=== PATIENT | female | born 1960 | race Caucasian/White ===

== ENCOUNTER 2016-10-18 14:08 | Emergency (ER) | payer MEDICARE, OTHER ==
[~2016-10-18] VITALS: Ht 160 cm; Wt 85.0 kg
[~2016-10-18 14:08] MED LIST: CLON1TAB PO; RISP1 PO
[2016-10-18 14:14] VITALS: BP 108/67; PULSE 76; RESP 16; TEMP 98.8; O2SAT 96
--- NOTE | 2016-10-18 15:34 | PD ---
HPI Chief Complaint: Musculoskeletal Complaint Time Seen by Provider: 15:32 Travel History International Travel<30 days: No Contact w/Intl Traveler<30days: No Traveled to known affect area: No History of Present Illness HPI Patient comes in complaining of a productive cough ongoing for approximately 2 weeks. Patient states she's been coughing up yellowish and clear phlegm. Patient states her had similar symptoms with the [facility] was evaluated prescribed amoxicillin however he wasn't taken and she had been taking it with some improvement of her symptoms however ran out 2 days and feels her symptoms are getting worse again. Patient also reports that she developed right upper anterior chest wall pain that is worse with coughing and certain movement. Patient has any trauma. Patient states she was carrying some heavy bags is not sure if this may have caused the pain or if it is from coughing. Patient denies any known fevers, nausea, vomiting, diarrhea, abdominal pain, neck pain, or back pain.. PFSH Past Medical History Blood Disorders: No Anxiety: Yes Depression: Yes Cancer: No Cardiovascular Problems: Yes (CHOLESTEROL) Diminished Hearing: No Endocrine: No Genitourinary: No Immune Disorder: No Musculoskeletal: No Neurologic: No Psychiatric: Yes Reproductive: No Respiratory: No Immunizations Current: Yes Influenza Vaccination: No ?: Not Menopausal: Yes Past Surgical History AICD: No Arteriovenous Shunt: No Insulin Pump: No Joint Replacement: No Pacemaker: No Other Surgery: No Social History Alcohol Use: No Tobacco Use: Yes (/ PPD) Substance Use: No Allergies-Medications (Allergen,Severity, Reaction): Coded Allergies: Haldol (Verified Allergy, Severe, Swelling, 10/18/16) [place] (Verified Allergy, Severe, Swelling, 10/18/16) Reported Meds & Prescriptions Reported Meds & Active Scripts Active Ventolin Hfa 18 GM Inh (Albuterol Sulfate) 90 Mcg/Act Aer 2 Puff INH Q4H PRN Zithromax Z-Dante (Azithromycin) 250 Mg Dspk 250 Mg PO DIRECTED 500 MG (2 tabs) day 1, then 1 tab days 2-5. Reported Clonazepam 1 Mg Tab 1 Mg PO BID Risperdal (Risperidone) 1 Mg Tab 1 Mg PO BID Review of Systems Except as stated in HPI: all other systems reviewed are Neg Physical Exam Narrative GENERAL: Well-developed, overly nourished, in no acute distress, and non-ill appearing. SKIN: Warm and dry. HEAD: Atraumatic. Normocephalic. EYES: Pupils equal and round. EOMI. No scleral icterus. No injection or drainage. ENT: No nasal bleeding or discharge. Mucous membranes pink and moist. Tympanic membranes are pearly crane bilaterally. Posterior pharynx nonerythematous without exudate. Uvula is midline. No tenderness to facial sinuses palpation. NECK: Trachea midline. No cervical lymphadenopathy. Supple. No nuclear rigidity. CARDIOVASCULAR: Regular rate and rhythm. No murmur appreciated. RESPIRATORY: No accessory muscle use. No respiratory distress. Clear to auscultation. Breath sounds equal bilaterally. MUSCULOSKELETAL: No obvious deformities. No clubbing. No cyanosis. No edema. Full range of motion. NEUROLOGICAL: Awake and alert. No obvious cranial nerve deficits. Motor grossly within normal limits. Normal speech. PSYCHIATRIC: Appropriate mood and affect; insight and judgment normal. Data Data Last Documented VS Vital Signs Date Time Temp Pulse Resp B/P Pulse Ox O2 Delivery O2 Flow Rate FiO2 10/18/16 14:14 98.8 76 16 108/67 96 Orders Chest, Single Ap (10/18/16 ) [facility] Medical Decision Making Medical Screen Exam Complete: Yes Emergency Medical Condition: Yes Differential Diagnosis Pneumonia, bronchitis, upper respiratory infection, other Narrative Course Patients symptom complex is consistent with bronchitis. The patient is non-ill appearing and is in no respiratory distress and comfortable. The patient moves air well and oxygen saturations are normal. Chest x-ray revealed no evidence of obvious consolidation of infiltrate. There is no clinical evidence to suggest pneumonia at this time. Plan of care and management were discussed with the patient who agreed with plan. The patient was instructed to follow up with their physician and instructed to return if worsens , progressively worsening shortness of breath or difficulty breathing, persistent fever, chest pains or discomfort, inability to keep medication or fluids down with or without vomiting, or as needed. Patient in no obvious distress upon re-evaluation. All pertinent Radiology result(s) discussed with patient. Patient was asked if they wanted to speak to my attending, which the patient did not wish to do at this time. Any questions/ concerns in reference to patient diagnosis/condition discussed and clarified prior to patient's discharge. Reinforced sheer importance of close follow up with patient's primary physician or primary care clinic. Instructed patient to return to ED immediately, if symptoms return/worsen. Pt showed understanding of above instructions. Further instructions and recommendations were detailed in discharge paperwork. Pt ambulated without difficulty out of ED at discharge. Diagnosis Primary Impression: Bronchitis Patient Instructions: Acute Bronchitis (ED), General Instructions Additional Instructions: Follow-up with your primary care physician next week for evaluation. Take all medication as prescribed. Return to the emergency department if symptoms get worse. Med/Other Pt SpecificInfo: Prescription(s) given Scripts Albuterol 18 GM Inh (Ventolin Hfa 18 GM Inh)90 Mcg/Act Aer2 Puff INH Q4H PRN ( SHORTNESS OF BREATH) #1 INHALER Ref 0 Prov:Evens Parada MD 10/18/16 Azithromycin (Zithromax Z-Dante)250 Mg [id number] Mg PO DIRECTED #1 DSPK Ref 0 500 MG (2 tabs) day 1, then 1 tab days 2-5. Prov:Evens Parada MD 10/18/16 Disposition: 01 DISCHARGE HOME Condition: Stable Bryan Goddard Oct 18, 2016 15:34
--- NOTE | 2016-10-18 15:54 | RADHPO ---
EXAM DATE/TIME: 10/18/2016 15:34 [facility] COMPARISON: CHEST SINGLE AP, June 11, 2015, 14:54. INDICATIONS : Right chest pain. MEDICAL HISTORY : None. SURGICAL HISTORY : None. ENCOUNTER: Initial ACUITY: 2 weeks PAIN SCORE: 8/10 LOCATION: Right chest FINDINGS: A single view of the chest demonstrates the lungs to be symmetrically aerated without evidence of mas s, infiltrate or effusion. The cardiomediastinal contours are unremarkable. Osseous structures are intact. CONCLUSION: 1. No acute cardiopulmonary findings identified. Sawyer Cerda MD on October 18, 2016 at 15:52 Board Certified Radiologist. This report was verified electronically.
[2016-10-18] MEDS ORDERED: ZITHTAB PO (16:05)
[2016-10-18] MEDS ORDERED: VENTAER INH (16:05)
== END 2016-10-18 16:26 | disposition home or self-care (01) ==
LOC: PHEFT 14:08
DX: J40 Bronchitis, not specified as acute or chronic (principal); F17.200 Nicotine dependence, unspecified, uncomplicated
CPT/HCPCS: 71010; 99283

== ENCOUNTER 2017-05-17 10:50 | Emergency (ER) | payer MEDICARE, OTHER ==
[~2017-05-17] VITALS: Ht 160 cm; Wt 86.0 kg
[~2017-05-17 10:50] MED LIST changes: +VENTAER INH; +ZITHTAB PO
[2017-05-17 10:52] VITALS: BP 137/61; PULSE 76; RESP 16; TEMP 98.1; O2SAT 95
--- NOTE | 2017-05-17 11:22 | PD ---
HPI Chief Complaint: Cold / Flu Symptoms Time Seen by Provider: 11:08 Travel History International Travel<30 days: No Contact w/Intl Traveler<30days: No Traveled to known affect area: No History of Present Illness HPI 56-year-old female presents to the emergency department approximately 1 week history of upper respiratory symptoms including headache, sore throat, postnasal drip, and congestion with wheezing and productive cough of yellow sputum. Patient has a long-term smoker and currently smokes half pack cigarettes per day. She states her has been sick as well which started her symptoms. Denies nausea, vomiting, or abdominal discomfort. She denies chest pain. She states no specific complaints of fever. She is wheezy with exertion. Patient has used inhalers in the past with improvement. Patient states she is "trying to quit smoking". She is allergic to haloperidol and lithium. PFSH Past Medical History Blood Disorders: No Anxiety: Yes Depression: Yes Cancer: No Cardiovascular Problems: Yes (CHOLESTEROL) Diminished Hearing: No Endocrine: No Genitourinary: No Immune Disorder: No Musculoskeletal: No Neurologic: No Psychiatric: Yes Reproductive: No Respiratory: No Immunizations Current: Yes Influenza Vaccination: No Menopausal: Yes Past Surgical History AICD: No Arteriovenous Shunt: No Insulin Pump: No Joint Replacement: No Pacemaker: No Other Surgery: No Social History Alcohol Use: No Tobacco Use: Yes (1/2 PPD) Substance Use: No Allergies-Medications (Allergen,Severity, Reaction): Coded Allergies: haloperidol (Unverified Allergy, Severe, Swelling, 05/17/17) lithium (Unverified Allergy, Severe, Swelling, 05/17/17) Reported Meds & Prescriptions Reported Meds & Active Scripts Active Amoxicillin 875 Mg Tab 875 Mg PO BID 10 Days Ventolin Hfa 18 GM Inh (Albuterol Sulfate) 90 Mcg/Act Aer 2 Puff INH Q4-6H PRN Reported Clonazepam 1 Mg Tab 1 Mg PO BID Risperdal (Risperidone) 1 Mg Tab 1 Mg PO BID Review of Systems Except as stated in HPI: all other systems reviewed are Neg General / Constitutional: No: Fever, Chills Eyes: No: Visual changes HENT: Positive: Headaches, Sore Throat, Rhinitis, Rhinorrhea, Congestion, Neck Stiffness, Earache, No: Vertigo, Lightheadedness, Nosebleed, Neck Pain, Masses, Gingival Bleeding, Dental Difficulties, Ear Discharge Cardiovascular: No: Chest Pain or Discomfort Respiratory: Positive: Cough, Shortness of Breath, Wheezing, No: Sneezing, Orthopnea, Hemoptysis, Night Sweats, Pleuritic Pain Gastrointestinal: No: Abdominal Pain Genitourinary: No: Dysuria Musculoskeletal: No: Pain Skin: No Rash Neurologic: No: Weakness Psychiatric: No: Depression Endocrine: No: Polydipsia Hematologic/Lymphatic: No: Easy Bruising Physical Exam Narrative GENERAL: Patient appears in no acute distress. SKIN: Warm and dry. Normal color. Normal turgor. HEAD: Atraumatic. Normocephalic. No specific sinus tenderness with palpation. EYES: Pupils equal and round. No scleral icterus. No injection or drainage. ENT: No nasal bleeding or discharge. Mucous membranes pink and moist. Posterior pharynx is somewhat raw appearing with mild erythema, but no significant lymphadenopathy or tonsillitis. Airway is patent. TMs are dull bilaterally with mild injection. NECK: Trachea midline. No JVD. Supple and nontender without significant lymphadenopathy. CARDIOVASCULAR: Regular rate and rhythm. RESPIRATORY: No accessory muscle use. Coarse with mild wheezing to auscultation throughout. Breath sounds equal bilaterally. GASTROINTESTINAL: Abdomen soft, non-tender, nondistended. Hepatic and splenic margins not palpable. MUSCULOSKELETAL: Extremities without clubbing, cyanosis, or edema. No obvious deformities. NEUROLOGICAL: Awake and alert. No obvious cranial nerve deficits. Motor grossly within normal limits. Five out of 5 muscle strength in the arms and legs. Normal speech. PSYCHIATRIC: Appropriate mood and affect; insight and judgment normal. Data Data Last Documented VS Vital Signs Date Time Temp Pulse Resp B/P (MAP) Pulse Ox O2 Delivery O2 Flow Rate FiO2 05/17/17 10:52 98.1 76 16 137/61 (86) 95 MDM Medical Decision Making Medical Screen Exam Complete: Yes Emergency Medical Condition: Yes Differential Diagnosis Sinusitis. Bronchitis. Wheezing. Dyshidrotic eczema Narrative Course Patient is medically stable at time of exam. Patient will be treated with amoxicillin 875 twice a day 10 days. Patient also given Ventolin metered dose inhaler 2 puffs every 4-6 hours when necessary. Patient is given triamcinolone ointment to use for her dyshidrotic eczema on her hands. Patient is encouraged to quit smoking as soon as possible. Patient to follow with her primary care physician or return to the emergency department as needed. Diagnosis Primary Impression: Acute wheezy bronchitis Additional Impression: Dyshidrotic eczema Referrals: Primary Care Physician Patient Instructions: Acute Bronchitis (ED), Dyshidrotic Eczema (ED), Electronic Cigarettes and Your Health (GEN), General Instructions Additional Instructions: Patient will be treated with amoxicillin 875 twice a day 10 days. Patient also given Ventolin metered dose inhaler 2 puffs every 4-6 hours when necessary. Patient is given triamcinolone ointment to use for her dyshidrotic eczema on her hands. Patient is encouraged to quit smoking as soon as possible. Patient to follow with her primary care physician or return to the emergency department as needed. Scripts Amoxicillin (Amoxicillin) 875 Mg Tab 875 MG PO BID for Infection for 10 Days, #20 TAB 0 Refills Prov: Sawyer Menchaca MD 05/17/17 Albuterol 18 GM Inh (Ventolin Hfa 18 GM Inh) 90 Mcg/Act Aer 2 PUFF INH Q4-6H Y for SHORTNESS OF BREATH, #1 INHALER 0 Refills Prov: Sawyer Menchaca MD 05/17/17 Disposition: 01 DISCHARGE HOME Condition: Stable Steven Naranjo May 17, 2017 11:22
[2017-05-17] MEDS ORDERED: VENTAER INH (11:23)
[2017-05-17] MEDS ORDERED: AMOX875T PO (11:23)
[2017-05-17] MEDS ORDERED: TRIAM.1%T TOPICAL (11:28)
== END 2017-05-17 11:32 | disposition home or self-care (01) ==
LOC: PHEFT 10:50
DX: J20.9 Acute bronchitis, unspecified (principal); L30.1 Dyshidrosis [pompholyx]
CPT/HCPCS: 99284

== ENCOUNTER 2017-10-17 16:46 | Emergency (ER) | payer MEDICARE, OTHER ==
[~2017-10-17] VITALS: Ht 160 cm; Wt 85.0 kg
[~2017-10-17 16:46] MED LIST changes: +AMOX875T PO; +TRIAM.1%T TOPICAL; -ZITHTAB PO
[2017-10-17 16:49] VITALS: BP 127/59; PULSE 95; RESP 16; TEMP 97.6; O2SAT 97
[2017-10-17 18:19] VITALS: BP 127/70; PULSE 79; RESP 18; TEMP 98.7; O2SAT 95
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
[2017-10-17 18:55] LABS: AUTOMATED NEUTROPHIL # 5.7 TH/MM3 (1.8-7.7); BASOPHIL # 0.1 TH/MM3 (0-0.2); BASOPHIL % 0.9 % (0.0-2.0); EOSINOPHIL # 0.2 TH/MM3 (0-0.4); EOSINOPHIL % 2.6 % (0.0-4.0); HEMATOCRIT 43.8 % (35.0-46.0); LYMPH % 31.5 % (9.0-44.0); MEAN CORPUSCULAR HEMOGLOBIN 31.8 PG (27.0-34.0); MEAN CORPUSCULAR HGB CONC 34.2 % (32.0-36.0); MEAN PLATELET VOLUME 8.5 FL (7.0-11.0); MONO % 5.8 % (0.0-8.0); MONOCYTE # 0.5 TH/MM3 (0-0.9); NEUT % 59.2 % (16.0-70.0); PLATELET COUNT 285 TH/MM3 (150-450); RED BLOOD COUNT 4.71 MIL/MM3 (4.00-5.30); RED CELL DISTRIBUTION WIDTH 13.8 % (11.6-17.2); WHITE BLOOD COUNT 9.5 TH/MM3 (4.0-11.0)
[2017-10-17 19:19] LABS: ALBUMIN 3.5 GM/DL (3.4-5.0); AST (GOT) 20 U/L (15-37); BICARBONATE 27.1 MEQ/L (21.0-32.0); BLOOD UREA NITROGEN 12 MG/DL (7-18); CALCIUM 9.3 MG/DL (8.5-10.1); CHLORIDE 105 MEQ/L (98-107); CREATININE 1.13 MG/DL (0.50-1.00); GLOMERULAR FILTRATION RATE 49 ML/MIN (>89); GLUCOSE,RANDOM 138 MG/DL (74-106); SODIUM (NA) 139 MEQ/L (136-145)
[2017-10-17 19:20] LABS: ALT (GPT) 27 U/L (10-53)
[2017-10-17 19:30] LABS: ALKALINE PHOSPHATASE 89 U/L (45-117); TOTAL BILIRUBIN ADULT 0.3 MG/DL (0.2-1.0); TOTAL PROTEIN 7.1 GM/DL (6.4-8.2)
[2017-10-17 19:48] VITALS: BP 113/58; PULSE 82; RESP 18; TEMP 98.9; O2SAT 98
[2017-10-17] MEDS ORDERED: risperiDONE 1 MG TAB PO ONE (22:00)
[2017-10-17] MEDS ORDERED: clonazePAM 1 MG TAB PO ONE (22:00)
[2017-10-18 02:29] VITALS: BP 120/67; PULSE 80; RESP 16; TEMP 98.6; O2SAT 95
[2017-10-18 10:42] VITALS: BP 106/56; PULSE 86; RESP 16; O2SAT 95
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
--- NOTE | 2017-10-18 14:50 | PD ---
Physical Exam Date Seen by Provider: Oct 18, 2017 Time Seen by Provider: 14:49 Narrative 56-year-old female patient previously medically cleared for psychiatric evaluation has been seen by psychiatric staff and deemed psychiatrically stable for discharge. Follow-up plan is as per discharge note for psychiatry staff. Data Data Last Documented VS Vital Signs Date Time Temp Pulse Resp B/P (MAP) Pulse Ox O2 Delivery O2 Flow Rate FiO2 10/18/17 10:42 86 16 106/56 (73) 95 Room Air 10/18/17 02:29 98.6 Orders Orders Complete Blood Count With Diff (10/17/17 17:33) Comprehensive Metabolic Panel (10/17/17 17:33) Thyroid Stimulating Hormone (10/17/17 17:33) Psych Screen (10/17/17 17:33) Drug Screen, Random Urine (10/17/17 17:33) Risperidone (Risperdal) (10/17/17 22:00) Clonazepam (Klonopin) (10/17/17 22:00) Diet Regular Basic (10/18/17 Breakfast) Diet Regular Basic (10/18/17 Lunch) Labs Laboratory Tests Test 10/17/17 18:20 10/17/17 18:27 White Blood Count 9.5 TH/MM3 Red Blood Count 4.71 MIL/MM3 Hemoglobin 15.0 GM/DL Hematocrit 43.8 % Mean Corpuscular Volume 93.0 FL Mean Corpuscular Hemoglobin 31.8 PG Mean Corpuscular Hemoglobin Concent 34.2 % Red Cell Distribution Width 13.8 % Platelet Count 285 TH/MM3 Mean Platelet Volume 8.5 FL Neutrophils (%) (Auto) 59.2 % Lymphocytes (%) (Auto) 31.5 % Monocytes (%) (Auto) 5.8 % Eosinophils (%) (Auto) 2.6 % Basophils (%) (Auto) 0.9 % Neutrophils # (Auto) 5.7 TH/MM3 Lymphocytes # (Auto) 3.0 TH/MM3 Monocytes # (Auto) 0.5 TH/MM3 Eosinophils # (Auto) 0.2 TH/MM3 Basophils # (Auto) 0.1 TH/MM3 CBC Comment DIFF FINAL Differential Comment Blood Urea Nitrogen 12 MG/DL Creatinine 1.13 MG/DL Random Glucose 138 MG/DL Total Protein 7.1 GM/DL Albumin 3.5 GM/DL Calcium Level 9.3 MG/DL Alkaline Phosphatase 89 U/L Aspartate Amino Transf (AST/SGOT) 20 U/L Alanine Aminotransferase (ALT/SGPT) 27 U/L Total Bilirubin 0.3 MG/DL Sodium Level 139 MEQ/L Potassium Level 3.9 MEQ/L Chloride Level 105 MEQ/L Carbon Dioxide Level 27.1 MEQ/L Anion Gap 7 MEQ/L Estimat Glomerular Filtration Rate 49 ML/MIN Thyroid Stimulating Hormone 3rd Gen 1.330 uIU/ML Urine Opiates Screen NEG Urine Barbiturates Screen NEG Urine Amphetamines Screen NEG Urine Benzodiazepines Screen NEG Urine Cocaine Screen NEG Urine Cannabinoids Screen NEG MDM Medical Record Reviewed: Yes Supervised Visit with YOBANY: Yes Narrative Course 56-year-old female patient previously medically cleared for psychiatric evaluation has been seen by psychiatric staff and deemed psychiatrically stable for discharge. Follow-up plan is as per discharge note for psychiatry staff. Diagnosis Primary Impression: Medical clearance for psychiatric admission Additional Impression: Bipolar 1 disorder Disposition: DISCHARGE HOME Condition: Stable Steven Naranjo Oct 18, 2017 14:50
== END 2017-10-18 15:20 | disposition home or self-care (01) ==
LOC: NEPJ 16:46
DX: F31.89 Other bipolar disorder (principal); F17.210 Nicotine dependence, cigarettes, uncomplicated; J45.909 Unspecified asthma, uncomplicated; E78.00 Pure hypercholesterolemia, unspecified; Z79.899 Other long term (current) drug therapy
CPT/HCPCS: 80053; 80307; 84443; 85025; 99283

== ENCOUNTER 2017-12-14 16:54 | Emergency (ER) | payer MEDICARE, OTHER ==
[~2017-12-14] VITALS: Ht 160 cm; Wt 85.4 kg
[~2017-12-14 16:54] MED LIST changes: -AMOX875T PO; -TRIAM.1%T TOPICAL; -VENTAER INH
[2017-12-14 17:13] VITALS: BP 151/63; PULSE 69; RESP 18; TEMP 98.2; O2SAT 95
[2017-12-14 18:20] VITALS: BP 151/63; PULSE 74; RESP 16; TEMP 98.2; O2SAT 96
== END 2017-12-14 20:10 | disposition left against medical advice (07) ==
LOC: PHED 16:54 → PHEFT 20:10
DX: R22.0 Localized swelling, mass and lump, head (principal); Z53.21 Procedure and treatment not carried out due to patient leaving prior to being seen by health care provider
CPT/HCPCS: 99281

== ENCOUNTER 2017-12-15 01:20 | Emergency (ER) | payer MEDICARE, OTHER ==
[~2017-12-15] VITALS: Ht 160 cm; Wt 86.4 kg
[2017-12-15 01:29] VITALS: BP_SYST 11; BP_SYST 111; BP_DIAS 57; PULSE 68; RESP 18; TEMP 98.1; O2SAT 97
[2017-12-15 02:00] VITALS: O2SAT 95
[2017-12-15] MEDS ORDERED: SODIUM CHLOR 0.9% 1000 ML INJ 1,000 ML IV ONE (02:12)
[2017-12-15] MEDS ORDERED: ONDANSETRON HCL 4 MG/2 ML VIAL IVP ONE (02:15)
[2017-12-15] MEDS ORDERED: SODIUM CHLORIDE 0.9% FLUSH 10 ML FLUSH IVF PRN (02:15)
[2017-12-15] MEDS ORDERED: MECLIZINE HCL 25 MG TAB PO ONE (02:15)
--- NOTE | 2017-12-15 02:59 | RADRPT ---
EXAM DATE/TIME: 12/15/2017 02:41 [facility] COMPARISON: No previous studies available for comparison. INDICATIONS : Patient fell today , now having upper back pain. MEDICAL HISTORY : None. SURGICAL HISTORY : None. ENCOUNTER: Initial ACUITY: 1 day PAIN SCORE: 7/10 LOCATION: Bilateral upper back FINDINGS: There is normal alignment of the thoracic vertebral bodies. Vertebral body height is maintained. No evidence of fracture or subluxation. Pedicles are intact at all levels. The paravertebral reflecti ons are not thickened. CONCLUSION: Intact thoracic spine. Florencio Quick MD on December 15, 2017 at 2:57 Board Certified Radiologist. This report was verified electronically.
--- NOTE | 2017-12-15 03:02 | RADRPT ---
EXAM DATE/TIME: 12/15/2017 02:31 [facility] COMPARISON: No previous studies available for comparison. INDICATIONS : Dizziness. Fall. RADIATION DOSE: 57.81 CTDIvol (mGy) MEDICAL HISTORY : None SURGICAL HISTORY : Thalmus tumor removed. ENCOUNTER: Initial ACUITY: 1 day PAIN SCALE: 6/10 LOCATION: cranial TECHNIQUE: Multiple contiguous axial images were obtained of the head. Using automated exposure control and adj ustment of the mA and/or kV according to patient size, radiation dose was kept as low as reasonably a chievable to obtain optimal diagnostic quality images. DICOM format image data is available electro nically for review and comparison. FINDINGS: There is a left frontal lobe mass and measures estimated 2.1 cm and has partial calcification. I'm no t sure whether its intra-axial or extra-axial. There is definitely some associated vasogenic edema in the left frontal lobe. There is 4.5 mm of rightward midline shift. No other mass lesions are demonstrated. No bleed. No evidence of an acute ischemic event. 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 Further characteri zation with MRI of the brain with and without contrast recommended. Florencio Quick MD on December 15, 2017 at 2:58 Board Certified Radiologist. This report was verified electronically.
--- NOTE | 2017-12-15 03:04 | RADRPT ---
EXAM DATE/TIME: 12/15/2017 02:31 [facility] COMPARISON: No previous studies available for comparison. INDICATIONS : Trauma. Neck pain post fall. RADIATION DOSE: 26.53 CTDIvol (mGy) MEDICAL HISTORY : None SURGICAL HISTORY : Thalmus tumor removed. ENCOUNTER: Initial ACUITY: 1 day PAIN SCALE: 6/10 LOCATION: neck TECHNIQUE: Volumetric scanning of the cervical spine was performed. Multiplanar reconstructions in the sagittal, coronal and oblique axial planes were performed. Using automated exposure control and adjustment o f the mA and/or kV according to patient size, radiation dose was kept as low as reasonably achievable to obtain optimal diagnostic quality images. DICOM format image data is available electronically f or review and comparison. FINDINGS: There is no fracture or subluxation of the cervical spine. Vertebral bodies have normal height. Moderate to severe disc space narrowing with circumferential small disc osteophyte complexes and mild bilateral uncovertebral and facet osteoarthritis seen at C5/C6 and C6/C7. Associated minimal bilater al foraminal stenosis. No significant spinal stenosis demonstrated. The paravertebral soft tissues are normal. CONCLUSION: Intact cervical spine. Degenerative changes at C5/C6 and C6/C7. Florencio Quick MD on December 15, 2017 at 3:01 Board Certified Radiologist. This report was verified electronically.
[2017-12-15 03:10] LABS: AUTOMATED NEUTROPHIL # 5.4 TH/MM3 (1.8-7.7); BASOPHIL # 0.1 TH/MM3 (0-0.2); EOSINOPHIL # 0.5 TH/MM3 (0-0.4); EOSINOPHIL % 4.2 % (0.0-4.0); HEMATOCRIT 45.4 % (35.0-46.0); HEMOGLOBIN 15.3 GM/DL (11.6-15.3); LYMPH % 37.5 % (9.0-44.0); LYMPHOCYTE # 4.1 TH/MM3 (1.0-4.8); MEAN CELL VOLUME 93.2 FL (80.0-100.0); MEAN CORPUSCULAR HEMOGLOBIN 31.4 PG (27.0-34.0); MEAN CORPUSCULAR HGB CONC 33.7 % (32.0-36.0); MEAN PLATELET VOLUME 8.5 FL (7.0-11.0); MONO % 7.7 % (0.0-8.0); MONOCYTE # 0.8 TH/MM3 (0-0.9); NEUT % 49.6 % (16.0-70.0); PLATELET COUNT 311 TH/MM3 (150-450); RED BLOOD COUNT 4.87 MIL/MM3 (4.00-5.30); RED CELL DISTRIBUTION WIDTH 13.3 % (11.6-17.2); WHITE BLOOD COUNT 10.9 TH/MM3 (4.0-11.0)
--- NOTE | 2017-12-15 03:21 | PD ---
HPI Chief Complaint: Back/ Neck Pain or Injury Time Seen by Provider: 01:47 Travel History International Travel<30 days: No Contact w/Intl Traveler<30days: No Traveled to known affect area: No History of Present Illness HPI 56-year-old female arrives due to a fall in her shower. The patient slipped and fell onto her back striking her occipital scalp the thoracic spine and right scapula on the porcelain bathtub. The injury occurred about 7 hours prior to ER arrival as the patient came to the ER and then left due to long wait in triage. She denies loss of consciousness. She reports a continuous throbbing pain worse with palpation. She also describes dizziness which is difficult for her to qualify however it is not lightheadedness. PFSH Past Medical History Hx Anticoagulant Therapy: No Blood Disorders: No Anxiety: Yes Depression: Yes Cancer: No Cardiovascular Problems: Yes (CHOLESTEROL) Diminished Hearing: No Endocrine: No Gastrointestinal Disorders: No Genitourinary: No Immune Disorder: No Musculoskeletal: No Neurologic: No Psychiatric: Yes Reproductive: No Respiratory: Yes (ASTHMA) Immunizations Current: Yes Menopausal: Yes Past Surgical History AICD: No Arteriovenous Shunt: No Insulin Pump: No Joint Replacement: No Pacemaker: No Other Surgery: No Social History Alcohol Use: No Tobacco Use: Yes (1/2 PPD) Substance Use: No Allergies-Medications (Allergen,Severity, Reaction): Coded Allergies: haloperidol (Unverified Allergy, Severe, Swelling, 12/15/17) lithium (Unverified Allergy, Severe, Swelling, 12/15/17) Reported Meds & Prescriptions Reported Meds & Active Scripts Active Reported Clonazepam 1 Mg Tab 1 Mg PO BID Risperdal (Risperidone) 1 Mg Tab 1 Mg PO BID Review of Systems Except as stated in HPI: all other systems reviewed are Neg General / Constitutional: No: Fever Physical Exam Narrative GENERAL: 56 Vital Signs Date Time Temp Pulse Resp B/P (MAP) Pulse Ox O2 Delivery O2 Flow Rate FiO2 12/15/17 01:29 98.1 68 18 111/57 (75) 89 -year-old female pleasant well-nourished well-developed acute distress SKIN: Warm and dry. HEAD: Atraumatic. Normocephalic. EYES: Pupils equal and round. No scleral icterus. No injection or drainage. ENT: No nasal bleeding or discharge. Mucous membranes pink and moist. NECK: Trachea midline. No JVD. CARDIOVASCULAR: Regular rate and rhythm. RESPIRATORY: No accessory muscle use. Clear to auscultation. Breath sounds equal bilaterally. GASTROINTESTINAL: Abdomen soft, non-tender, nondistended. Hepatic and splenic margins not palpable. MUSCULOSKELETAL: Extremities without clubbing, cyanosis, or edema. No obvious deformities. NEUROLOGICAL: Awake and alert. No obvious cranial nerve deficits. Motor grossly within normal limits. Five out of 5 muscle strength in the arms and legs. Normal speech. PSYCHIATRIC: Appropriate mood and affect; insight and judgment normal. Data Data Last Documented VS Vital Signs Date Time Temp Pulse Resp B/P (MAP) Pulse Ox O2 Delivery O2 Flow Rate FiO2 12/15/17 01:29 98.1 68 18 111/57 (75) 97 Orders Orders Basic Metabolic Panel (Bmp) (12/15/17 02:12) Complete Blood Count With Diff (12/15/17 02:12) Urinalysis - C+S If Indicated (12/15/17 02:12) Ct Brain W/O Iv Contrast(Rout) (12/15/17 02:12) Ct Cerv Spine W/O Contrast (12/15/17 02:12) Ecg Monitoring (12/15/17 02:12) Iv Access Insert/Monitor (12/15/17 02:12) Oximetry (12/15/17 02:12) Meclizine (Antivert) (12/15/17 02:15) Ondansetron Inj (Zofran Inj) (12/15/17 02:15) Sodium Chloride 0.9% Flush (Ns Flush) (12/15/17 02:15) Sodium Chlor 0.9% 1000 Ml Inj (Ns 1000 M (12/15/17 02:12) Spine, Thoracic-Ap/Lat/Sw(3vw) (12/15/17 ) Mri Brain W&W/O Contrast (12/15/17 ) Ed Discharge Order (12/15/17 03:26) Labs Laboratory Tests Test 12/15/17 02:45 White Blood Count 10.9 TH/MM3 Red Blood Count 4.87 MIL/MM3 Hemoglobin 15.3 GM/DL Hematocrit 45.4 % Mean Corpuscular Volume 93.2 FL Mean Corpuscular Hemoglobin 31.4 PG Mean Corpuscular Hemoglobin Concent 33.7 % Red Cell Distribution Width 13.3 % Platelet Count 311 TH/MM3 Mean Platelet Volume 8.5 FL Neutrophils (%) (Auto) 49.6 % Lymphocytes (%) (Auto) 37.5 % Monocytes (%) (Auto) 7.7 % Eosinophils (%) (Auto) 4.2 % Basophils (%) (Auto) 1.0 % Neutrophils # (Auto) 5.4 TH/MM3 Lymphocytes # (Auto) 4.1 TH/MM3 Monocytes # (Auto) 0.8 TH/MM3 Eosinophils # (Auto) 0.5 TH/MM3 Basophils # (Auto) 0.1 TH/MM3 CBC Comment DIFF FINAL Differential Comment Calcium Level 9.1 MG/DL Sodium Level 138 MEQ/L Potassium Level 3.9 MEQ/L Chloride Level 105 MEQ/L [facility] Medical Decision Making Medical Screen Exam Complete: Yes Emergency Medical Condition: Yes Medical Record Reviewed: Yes Differential Diagnosis Intracranial hemorrhage, closed head injury, C-spine fracture, thoracic spine fracture, vertigo, electrolyte imbalance Narrative Course CBC & BMP Diagram 12/15/17 02:[address] 12/15/17211 Signed Impressions: Service Date/Time: Friday, December 15, 2017 02:31 - CONCLUSION: Left frontal lobe mass with vasogenic edema and 4.5 mm of rightward midline shift. Further characterization with MRI of the brain with and without contrast recommended. Florencio Quick MD Cervical Spine CT 12/15/17211 Signed Impressions: Service Date/Time: Friday, December 15, 2017 02:31 - CONCLUSION: Intact cervical spine. Degenerative changes at C5/C6 and C6/C7. Florencio Quick MD Thoracic Spine X-Ray 12/15/17 0000 Signed Impressions: Service Date/Time: Friday, December 15, 2017 02:41 - CONCLUSION: Intact thoracic spine. MD Gloria Nash RN and Maya RN witnessed the discussion of the head CT results with the patient. Concern for tumor or abscess, among other diagnoses, was disussed with patient. necessity of immediate follow up with patient discussed. pt refused MR , admission and further work up. Risks of refusal were verbalized to patient with RNs present at (325AM 12/15) which include: , permanent disability, pain and suffering, dependence on others, financial catastrophe, emergency surgery, icu stay. Pt stated she would follow up in [place]. She states that she was once told many years ago of a abnormality on head CT. She was advised to characteristics of today's head CT are concerning because they are consistent with a relatively acute finding. The patient is alert and oriented 4. The patient is competent for understanding independent decision making and has verbalized understanding that she is signing out AGAINST MEDICAL ADVICE and that considered doing she is refusing the recommendations of the undersigned, the attending physician of record. She understands she can return any time and that we will be happy to help her. Critical Care Narrative Diagnosis Primary Impression: Left against medical advice Disposition: 07 AGAINST MEDICAL ADVICE Condition: Stable Sawyer Menchaca MD Dec 15, 2017 03:21
[2017-12-15 03:26] LABS: BICARBONATE 25.9 MEQ/L (21.0-32.0); CALCIUM 9.1 MG/DL (8.5-10.1)
[2017-12-15 03:31] VITALS: BP 123/64; PULSE 86; RESP 18; O2SAT 95
== END 2017-12-15 03:44 | disposition left against medical advice (07) ==
LOC: PHED 01:20
DX: M54.2 Cervicalgia (principal); R42 Dizziness and giddiness; W01.198A Fall on same level from slipping, tripping and stumbling with subsequent striking against other object, initial encounter; Y93.E1 Activity, personal bathing and showering; R94.02 Abnormal brain scan; F41.9 Anxiety disorder, unspecified; F32.9 Major depressive disorder, single episode, unspecified; F17.200 Nicotine dependence, unspecified, uncomplicated; Z53.20 Procedure and treatment not carried out because of patient's decision for unspecified reasons
CPT/HCPCS: 70450; 72072; 72125; 80048; 85025; 96360; 99285; J7030

== ENCOUNTER 2018-02-15 20:32 | Emergency (ER) | payer MEDICARE, OTHER | END 2018-02-15 21:17 | disposition left against medical advice (07) | LOC: NED 20:32 | DX: Z00.00 Encounter for general adult medical examination without abnormal findings (principal) | CPT/HCPCS: 99281 ==